=== PATIENT | male | born 1950 ===

== ENCOUNTER 2017-05-22 22:30 | Inpatient (IN) | payer OTHER ==
[2017-05-22 23:07] VITALS: BMI 25.1
[2017-05-22] MEDS ORDERED: Sodium Chloride 0.9% 1,000 ML IV ONE (23:09)
[2017-05-22] MEDS ORDERED: Iohexol 240 (50 ml) PO ONE (23:10)
[2017-05-22] MEDS ORDERED: Sodium Chloride 0.9% 1,000 ML ONE (23:10)
--- NOTE | 2017-05-22 23:22 | C.PDOC ---
History Of Present Illness 66 year old male who presents to the ER with a complaint of severe epigastric pain that began today, associated with nausea and vomiting. Denies diarrhea, dysuria, hematuria, or radiation of pain. Chief Complaint (Nursing): Abdominal Pain History Per: Patient History/Exam Limitations: no limitations Onset/Duration Of Symptoms: Hrs Current Symptoms Are (Timing): Still Present Location Of Pain/Discomfort: Epigastric Quality Of Discomfort: Unable To Describe Associated Symptoms: Nausea, Vomiting. denies: Fever, Chills Exacerbating Factors: None Alleviating Factors: None Recent travel outside of the [place]: No Past Medical History Reviewed: Historical Data, Nursing Documentation, Vital Signs Vital Signs: Last Vital Signs Temp 97.3 F L 05/23/17 02:23 Pulse 55 L 05/23/17 03:45 Resp 16 05/23/17 03:45 BP 122/80 05/23/17 03:45 Pulse Ox 97 05/23/17 04:46 - Medical History PMH: No Chronic Diseases Surgical History: No Surg Hx Family History: States: Unknown Family Hx - Social History Hx Alcohol Use: No Hx Substance Use: No - Immunization History Hx Tetanus Toxoid Vaccination: No Hx Influenza Vaccination: No Hx Pneumococcal Vaccination: No Review Of Systems Constitutional: Negative for: Fever, Chills Cardiovascular: Negative for: Chest Pain Respiratory: Negative for: Shortness of Breath Gastrointestinal: Positive for: Nausea, Vomiting, Abdominal Pain. Negative for : Diarrhea Genitourinary: Negative for: Dysuria, Hematuria Neurological: Negative for: Weakness, Numbness Physical Exam - Physical Exam Appears: Non-toxic, No Acute Distress Skin: Normal Color, Warm, Dry Head: Atraumatic, Normacephalic Oral Mucosa: Moist Chest: Symmetrical, No Tenderness Cardiovascular: Rhythm Regular, No Murmur Respiratory: Normal Breath Sounds, No Rales, No Rhonchi, No Wheezing Gastrointestinal/Abdominal: Soft, Tenderness (Epigastric), No Guarding, No Rebound Neurological/Psych: Oriented x3, Normal Speech, Normal Cognition ED Course And Treatment - Laboratory Results Result Diagrams: 05/22/17 23:36 05/22/17 23:36 O2 Sat by Pulse Oximetry: 97 (Room air) Pulse Ox Interpretation: Normal Progress Note: CT abd/pel, blood work, and urinalysis ordered. Morphine, zofran , and IV fluids administered. On reevaluation, patient's pain has improved, awaiting CT results. On reevaluation, patient continues with persistent RUQ and epigastric pain. Will page Dr. Sullivan for admission. Spoke to Dr. Sullivan who instructed to admit under medicine position description manager and he will see patient as a consult. Disposition Discussed With : Elisabeth Enamorado Doctor Will See Patient In The: Hospital Counseled Patient/Family Regarding: Diagnosis - Disposition Referrals: Vasquez Sullivan MD [Staff Provider] - Disposition: HOSPITALIZED Disposition Time: 04:45 Condition: STABLE Forms: [employer] (German) - Clinical Impression Clinical Impression: Abdominal pain, Gall bladder stones, Cholecystitis - Scribe Statement The provider has reviewed the documentation as recorded by the Scribzaid Oliveros All medical record entries made by the Scribe were at my direction and personally dictated by me. I have reviewed the chart and agree that the record accurately reflects my personal performance of the history, physical exam, medical decision making, and the department course for this patient. I have also personally directed, reviewed, and agree with the discharge instructions and disposition.
[2017-05-22 23:39] LABS: BASO % 0.3 % (0.0-2.0); EOS # 0.1 K/uL (0.0-0.7); EOS % 0.4 % (0.0-4.0); LYMPH # 2.5 K/uL (1.0-4.3); LYMPH % 15.4 % (20.0-40.0); MEAN CELL VOLUME 88.3 fL (80.0-94.0); MEAN CORPUSCULAR HEMOGLOBIN 30.1 pg (27.0-31.0); MEAN CORPUSCULAR HGB CONC 34.1 g/dL (33.0-37.0); MONO # 1.2 K/uL (0.0-0.8); NRBC % 0.1 % (0.0-2.0); RED CELL DISTRIBUTION WIDTH 13.3 % (11.5-14.5); WHITE BLOOD COUNT 16.4 K/uL (4.8-10.8)
[2017-05-22 23:48] LABS: CHLORIDE 105 mmol/L (98-107); POTASSIUM 3.6 mmol/L (3.6-5.2); SODIUM 144 mmol/L (132-148)
[2017-05-22 23:50] LABS: AST/SGOT 47 U/L (17-59); BILIRUBIN,TOTAL 1.6 mg/dL (0.2-1.3); CARBON DIOXIDE 22 mmol/L (22-30); GFR AFRICAN-AMERICAN > 60
[2017-05-22 23:51] LABS: ALB/GLOB RATIO 1.1 (1.0-2.1); ALKALINE PHOSPHATASE 90 U/L (38-126); ALT/SGPT 50 U/L (21-72); BLOOD UREA NITROGEN 21 mg/dL (9-20); CALCIUM 9.4 mg/dl (8.6-10.4); GLUCOSE,RANDOM 147 mg/dL (75-110); TOTAL PROTEIN 7.7 g/dL (6.3-8.3)
[2017-05-22] MEDS ORDERED: Iohexol 240 (50 ml) ONE (23:58)
[2017-05-23] MEDS ORDERED: Iodixanol 320 MG/ML 100 ML BOTTLE IV ONE (00:01)
[2017-05-23 00:02] LABS: RBC URINE 2 /hpf (0-3); URINE BILIRUBIN NEGATIVE (NEGATIVE); URINE BLOOD NEGATIVE (NEGATIVE); URINE COLOR Yellow (YELLOW); URINE GLUCOSE (UA) 1+ mg/dL (Normal); URINE KETONE 2+ mg/dL (NEGATIVE); URINE LEUKOCYTE ESTERASE NEG Leu/uL (Negative); URINE PROTEIN NEGATIVE (NEGATIVE); WBC URINE 1 /hpf (0-5)
[2017-05-23] MEDS ORDERED: Sodium Chloride 0.9% 500 ML IV ONE (00:36)
--- NOTE | 2017-05-23 01:48 | CT ---
EXAM: CT Abdomen and Pelvis With Intravenous Contrast CLINICAL HISTORY: 66 years old, male; Pain; Abdominal pain; Prior surgery; Surgery type: Gastroscopy; Additional info: Upper bd pain TECHNIQUE: Axial computed tomography images of the abdomen and pelvis with intravenous contrast. All CT scans at this facility use one or more dose reduction techniques, viz.: automated exposure control; ma/kV adjustment per patient size (including targeted exams where dose is matched to indication; i.e. head); or iterative reconstruction technique. Coronal and sagittal reformatted images were created and reviewed. CONTRAST: 100 mL of [id number] administered intravenously. COMPARISON: No relevant prior studies available. FINDINGS: Lower thorax: Bilateral hilar and mediastinal calcified lymph nodes, consistent with prior granulomatous disease. ABDOMEN: Liver: Liver is unremarkable. Gallbladder and bile ducts: Cholelithiasis. Stomach is unremarkable. No small bowel obstruction. No ductal dilation. Pancreas: Unremarkable. No mass. No ductal dilation. Spleen: Unremarkable. No splenomegaly. Adrenals: Unremarkable. No mass. Kidneys and ureters: Unremarkable. No solid mass. No hydronephrosis. Stomach and bowel: Mild to moderate amount of residual stool in colon. Appendix: Appendix is unremarkable. PELVIS: Bladder: Unremarkable. No mass. Reproductive: Enlarged prostate gland. ABDOMEN and PELVIS: Intraperitoneal space: Unremarkable. No free air. No significant fluid collection. Bones/joints: No acute fracture. No dislocation. Soft tissues: Unremarkable. Vasculature: Unremarkable. No abdominal aortic aneurysm. Lymph nodes: See above. IMPRESSION: 1. Old granulomatous disease. 2. Cholelithiasis. 3. Remainder of findings as above.
[2017-05-23] MEDS ORDERED: cefTRIAXone IV 1 gm in Dextros 50 ML IVPB ONE ×2 (02:12→02:21)
[2017-05-23] MEDS ORDERED: metroNIDAZOLE IV 500 mg/100 ml 500 MG/100 ML BAG IVPB SCH (02:15)
[2017-05-23] MEDS ORDERED: metroNIDAZOLE IV 500 mg/100 ml 500 MG/100 ML BAG ONE (02:21)
[2017-05-23] MEDS ORDERED: metroNIDAZOLE IV 500 mg/100 ml 500 MG/100 ML BAG IVPB ONE (03:00)
[2017-05-23] MEDS ORDERED: HYDROmorphone 1 mg/ml ISec IVP STA (03:47)
[2017-05-23] MEDS ORDERED: HYDROmorphone 1 mg/ml ISec ONE (03:59)
[2017-05-23] MEDS ORDERED: HYDROmorphone 1 mg/ml ISec IVP PRN (04:45)
[2017-05-23] MEDS: Dextrose 5%/0.45% NS 1,000 ML IV SCH ×2 (05:06→14:16)
[2017-05-23] MEDS: metroNIDAZOLE IV 500 mg/100 ml 500 MG/100 ML BAG IVPB SCH ×3 (05:07→21:51)
[2017-05-23] MEDS: cefTRIAXone IV 1 gm in Dextros 50 ML IVPB SCH (10:44)
--- NOTE | 2017-05-23 10:44 | US ---
HISTORY: upper abd pain COMPARISON: CT of the abdomen and pelvis with contrast performed 05/23/17 TECHNIQUE: Sonographic evaluation of the right upper quadrant of the abdomen. FINDINGS: LIVER: Measures 12.4 cm in length. Echogenic liver may be seen in setting of hepatic parenchymal disease or fatty infiltration. No focal hepatic mass identified. The main portal vein appears patent with normal directional flow. No intrahepatic bile duct dilatation. GALLBLADDER: Non mobile gallstone evident within the gallbladder neck. No evidence of gallbladder wall thickening or pericholecystic edema. Negative sonographic Wood's sign as assessed by the washhouse worker. COMMON BILE DUCT: Measures 4 mm. PANCREAS: Not well-visualized. RIGHT KIDNEY: Measures 9.8 x 4.6 x 4.4 cm. No obstructing calculus or hydronephrosis identified. AORTA: Limited visualization appears grossly unremarkable. IVC: Limited visualization appears grossly unremarkable. OTHER FINDINGS: None . IMPRESSION: Cholelithiasis with non mobile gallstone at the gallbladder neck. Correlate clinically. Hepatic steatosis. Preliminary impression was provided by virtual radiologic.
--- NOTE | 2017-05-23 18:09 | CP.PCM.CON ---
<Timothy Barraza - Last Filed: 05/23/17 18:09> History of Present Illness - History of Present Illness History of Present Illness: Surgery 66 Y M w no sig PMH presents with sudden onset of abd pain/N/V that started yesterday. Pain is located on Epigastric area and RUQ. Pt reports nausea associated with food. Denies F/C/V/D/CP/SOB/hematochezia/hematemesis/hematuria/ dysuria/sick contact. Pt is visiting from [place] and visiting family in the area. This is the first time having these symptoms. US shows stone in the neck of the GB. CBD 4mm.WBC is 16k. T-bili 1.6. Surgery is consulted to evaluate for acute cholecystitis. Review of Systems - Review of Systems Review of Systems: See HPI Past Patient History - Past Medical History & Family History Past Medical History?: Yes - Past Social History Smoking Status: Never Smoked Home Situation {Lives}: With Family - CARDIAC Hx Cardiac Disorders: No - PULMONARY Hx Respiratory Disorders: No - NEUROLOGICAL Hx Neurological Disorder: No - HEENT Hx HEENT Problems: No - RENAL Hx Kidney Stones: Yes - ENDOCRINE/METABOLIC Hx Endocrine Disorders: Yes Hx Hyperthyroidism: Yes - HEMATOLOGICAL/ONCOLOGICAL Hx Blood Disorders: No - INTEGUMENTARY Hx Dermatological Problems: No - MUSCULOSKELETAL/RHEUMATOLOGICAL Hx Falls: No - GASTROINTESTINAL Hx Gastrointestinal Disorders: Yes Other/Comment: Cholelithiasis - GENITOURINARY/GYNECOLOGICAL Hx Genitourinary Disorders: No - PSYCHIATRIC Hx Psychophysiologic Disorder: No Hx Substance Use: No - SURGICAL HISTORY Hx Surgeries: No - ANESTHESIA Hx Anesthesia: Yes Hx Anesthesia Reactions: No Hx Malignant Hyperthermia: No Meds Allergies/Adverse Reactions: Allergies Allergy/AdvReac Type Severity Reaction Status Date / Time No Known Allergies Allergy Verified 05/22/17 23:07 - Medications Medications: Current Medications Acetaminophen (Tylenol 325mg Tab) 975 mg PO Q6 PRN PRN Reason: Fever >100.4 F Hydromorphone HCl (Dilaudid) 1 mg IVP Q4H PRN PRN Reason: pain Last Admin: 05/23/17 10:44 Dose: 1 mg Dextrose/Sodium Chloride (Dextrose 5%/0.45% Ns 1000 Ml) 1,000 mls @ 100 mls/hr IV .Q10H JET Last Admin: 05/23/17 14:16 Dose: Not Given Metronidazole (Flagyl) 500 mg in 100 mls @ 100 mls/hr IVPB Q8 [facility] Last Admin: 05/23/17 14:00 Dose: 100 mls/hr Ceftriaxone Sodium (Rocephin Iv 1 Gm Duplex) 50 mls @ 100 mls/hr IVPB DAILY [facility] Last Admin: 05/23/17 10:44 Dose: 100 mls/hr Ondansetron HCl (Zofran Inj) 4 mg IVP Q4 PRN PRN Reason: Nausea/Vomiting Physical Exam - Constitutional Appears: No Acute Distress - Head Exam Head Exam: ATRAUMATIC, NORMAL INSPECTION, NORMOCEPHALIC - Eye Exam Eye Exam: EOMI, Normal appearance, PERRL Pupil Exam: NORMAL ACCOMODATION, PERRL - ENT Exam ENT Exam: Mucous Membranes Moist, Normal Exam - Neck Exam Neck exam: Positive for: Normal Inspection - Respiratory Exam Respiratory Exam: Clear to Auscultation Bilateral, NORMAL BREATHING PATTERN - Cardiovascular Exam Cardiovascular Exam: REGULAR RHYTHM - GI/Abdominal Exam GI & Abdominal Exam: Normal Bowel Sounds, Soft, Tenderness. absent: Distended, Firm, Guarding, Hernia Additional comments: Epigastric RUQ TTP - Extremities Exam Extremities exam: Positive for: full ROM, normal inspection Results - Vital Signs Recent Vital Signs: Last Vital Signs Temp 97.3 F L 05/23/17 15:20 Pulse 73 05/23/17 15:20 Resp 20 05/23/17 15:20 BP 112/73 05/23/17 15:20 Pulse Ox 99 05/23/17 15:20 - Labs Result Diagrams: 05/22/17 23:36 05/22/17 23:36 Assessment & Plan - Assessment and Plan (Free Text) Assessment: Acute cholecystitis -US gallstones Tbili 1.6 WBC 16k -OR tomorrow 11AM -NPO after midnight -IVF -Pain/nausea control VJ Sullivan <Vasquez Sullivan - Last Filed: 05/23/17 21:05> Meds - Medications Medications: Current Medications Acetaminophen (Tylenol 325mg Tab) 975 mg PO Q6 PRN PRN Reason: Fever >100.4 F Hydromorphone HCl (Dilaudid) 1 mg IVP Q4H PRN PRN Reason: pain Last Admin: 05/23/17 10:44 Dose: 1 mg Dextrose/Sodium Chloride (Dextrose 5%/0.45% Ns 1000 Ml) 1,000 mls @ 100 mls/hr IV .Q10H [facility] Last Admin: 05/23/17 14:16 Dose: Not Given Metronidazole (Flagyl) 500 mg in 100 mls @ 100 mls/hr IVPB Q8 [facility] Last Admin: 05/23/17 14:00 Dose: 100 mls/hr Ceftriaxone Sodium (Rocephin Iv 1 Gm Duplex) 50 mls @ 100 mls/hr IVPB DAILY [facility] Last Admin: 05/23/17 10:44 Dose: 100 mls/hr Ondansetron HCl (Zofran Inj) 4 mg IVP Q4 PRN PRN Reason: Nausea/Vomiting Results - Vital Signs Recent Vital Signs: Last Vital Signs Temp 97.3 F L 05/23/17 15:20 Pulse 73 05/23/17 15:20 Resp 20 05/23/17 15:20 BP 112/73 05/23/17 15:20 Pulse Ox 99 05/23/17 15:20 - Labs Result Diagrams: 05/22/17 23:36 05/22/17 23:36 Attending/Attestation - Attestation I have personally seen and examined this patient.: Yes I have fully participated in the care of the patient.: Yes I have reviewed all pertinent clinical information: Yes Notes (Text): 05/23/17 20:56 Pt was seen and examined at bedside Agree with above note and assessment Pt with Cholelithiasis and Cholecystitis Labs and radiology reviewed. OR for Lap Cholecystectomy Repeat LFTs IV antibiotics Plan d.w pt in detail Risk and benefit explained in detail.
[2017-05-24] MEDS: metroNIDAZOLE IV 500 mg/100 ml 500 MG/100 ML BAG IVPB SCH ×2 (05:11→14:43)
[2017-05-24] MEDS: Dextrose 5%/0.45% NS 1,000 ML IV SCH (05:14)
[2017-05-24 09:38] LABS: ALB/GLOB RATIO 1.1 (1.0-2.1); ALKALINE PHOSPHATASE 65 U/L (38-126); ALT/SGPT 44 U/L (21-72); AST/SGOT 29 U/L (17-59); BILIRUBIN,TOTAL 1.3 mg/dL (0.2-1.3); BLOOD UREA NITROGEN 8 mg/dL (9-20); CALCIUM 8.5 mg/dl (8.6-10.4); CARBON DIOXIDE 26 mmol/L (22-30); CHLORIDE 104 mmol/L (98-107); GFR AFRICAN-AMERICAN > 60; GLUCOSE,RANDOM 79 mg/dL (75-110); SODIUM 138 mmol/L (132-148); TOTAL PROTEIN 6.3 g/dL (6.3-8.3)
[2017-05-24] MEDS ORDERED: Propofol 10 mg/ml Inj (20 ML) ONE (10:44)
[2017-05-24] MEDS ORDERED: Midazolam 2 MG/2 ML VIAL ONE (10:44)
[2017-05-24] MEDS: Bupivacaine-Epi 0.25%-1:200,000 PF Inj ONE ×2 (11:03→11:10)
[2017-05-24] MEDS: Lidocaine 1% Inj (20ml) ONE ×2 (11:03→11:10)
[2017-05-24] MEDS ORDERED: Lactated Ringer's 1,000 ML IV ONE ×3 (11:04→12:41)
[2017-05-24] MEDS: cefTRIAXone IV 1 gm in Dextros 50 ML IVPB SCH (11:20)
--- NOTE | 2017-05-24 13:11 | PCM.SURG1 ---
Surgeon's Initial Post Op Note - Surgeon's Notes Surgeon: Laurie Waredresser: [id number] Type of Anesthesia: General Endo Pre-Operative Diagnosis: Cholelithiasis, Cholecystitis Operative Findings: Cholecystitis Post-Operative Diagnosis: Cholelithiasis, Cholecystitis Operation Performed: Laparoscopic cholecystectomy Specimen/Specimens Removed: Gallbladder Estimated Blood Loss: EBL {In ML}: 20 Blood Products Given: N/A Drains Used: No Drains Post-Op Condition: Good Date of Surgery/Procedure: 05/24/17 Time of Surgery/Procedure: 11:15
[2017-05-24 13:12] VITALS: TEMP 97.5
[2017-05-24] MEDS ORDERED: Lactated Ringer's 1,000 ML IV SCH (13:15)
[2017-05-24] MEDS ORDERED: Oxycodone/Acetaminophen 5/325 mg Tab PO PRN (13:16)
[2017-05-24] MEDS ORDERED: HYDROmorphone 1 mg/ml ISec IVP PRN (13:45)
[2017-05-24 17:03] VITALS: BP 131/77; PULSE 93; RESP 18; O2SAT 96
--- NOTE | 2017-05-24 17:24 | CP.PCM.DIS ---
Provider - Provider Date of Admission: 05/23/17 04:45 Attending physician: Elisabeth Enamorado MD Consults: Dr. Sullivan- surgery Time Spent in preparation of Discharge (in minutes): 20 Diagnosis - Discharge Diagnosis (1) Cholecystitis Status: Resolved (2) Gall bladder stones Status: Resolved (3) Abdominal pain Status: Resolved Hospital Course - Lab Results Lab Results: Most Recent Lab Values WBC 16.4 K/uL (4.8-10.8) H 05/22/17 23:36 RBC 5.43 Mil/uL (4.40-5.90) 05/22/17 23:36 Hgb 16.4 g/dL (12.0-18.0) 05/22/17 23:36 Hct 48.0 % (35.0-51.0) 05/22/17 23:36 MCV 88.3 fL (80.0-94.0) 05/22/17 23:36 MCH 30.1 pg (27.0-31.0) 05/22/17 23:36 MCHC 34.1 g/dL (33.0-37.0) 05/22/17 23:36 RDW 13.3 % (11.5-14.5) 05/22/17 23:36 Plt Count 308 K/uL (130-400) 05/22/17 23:36 MPV 8.0 fL (7.2-11.7) 05/22/17 23:36 Neut % (Auto) 76.9 % (50.0-75.0) H 05/22/17 23:36 Lymph % (Auto) 15.4 % (20.0-40.0) L 05/22/17 23:36 [place] % (Auto) 7.0 % (0.0-10.0) 05/22/17 23:36 Eos % (Auto) 0.4 % (0.0-4.0) 05/22/17 23:36 Baso % (Auto) 0.3 % (0.0-2.0) 05/22/17 23:36 Neut # 12.6 K/uL (1.8-7.0) H 05/22/17 23:36 Lymph # 2.5 K/uL (1.0-4.3) 05/22/17 23:36 [place] # 1.2 K/uL (0.0-0.8) H 05/22/17 23:36 Eos # 0.1 K/uL (0.0-0.7) 05/22/17 23:36 Baso # 0.0 K/uL (0.0-0.2) 05/22/17 23:36 Sodium 138 mmol/L (132-148) 05/24/17 08:56 Potassium 4.0 mmol/L (3.6-5.2) 05/24/17 08:56 Chloride 104 mmol/L (98-107) 05/24/17 08:56 Carbon Dioxide 26 mmol/L (22-30) 05/24/17 08:56 Anion Gap 12 (10-20) 05/24/17 08:56 BUN 8 mg/dL (9-20) L 05/24/17 08:56 Creatinine 0.9 MG/DL (0.8-1.5) 05/24/17 08:56 Est GFR ( Amer) > 60 05/24/17 08:56 Est GFR (Non-Af Amer) > 60 05/24/17 08:56 Random Glucose 79 mg/dL (75-110) 05/24/17 08:56 Calcium 8.5 mg/dl (8.6-10.4) L 05/24/17 08:56 Total Bilirubin 1.3 mg/dL (0.2-1.3) 05/24/17 08:56 AST 29 U/L (17-59) 05/24/17 08:56 ALT 44 U/L (21-72) 05/24/17 08:56 Alkaline Phosphatase 65 U/L (38-126) 05/24/17 08:56 Troponin I < 0.0120 ng/mL (0.00-0.120) 05/23/17 01:21 Total Protein 6.3 g/dL (6.3-8.3) 05/24/17 08:56 Albumin 3.3 g/dL (3.5-5.0) L 05/24/17 08:56 Globulin 3.1 gm/dL (2.2-3.9) 05/24/17 08:56 Albumin/Globulin Ratio 1.1 (1.0-2.1) 05/24/17 08:56 Lipase 140 U/L (23-300) 05/22/17 23:36 Urine Color Yellow (YELLOW) 05/22/17 23:55 Urine Clarity Clear (Clear) 05/22/17 23:55 Urine pH 5.0 (5.0-8.0) 05/22/17 23:55 Ur Specific [place] 1.021 (1.003-1.030) 05/22/17 23:55 Urine Protein Negative mg/dL (NEGATIVE) 05/22/17 23:55 Urine Glucose (UA) 1+ mg/dL (Normal) H 05/22/17 23:55 Urine Ketones 2+ mg/dL (NEGATIVE) H 05/22/17 23:55 Urine Blood Negative (NEGATIVE) 05/22/17 23:55 Urine Nitrate Negative (NEGATIVE) 05/22/17 23:55 Urine Bilirubin Negative (NEGATIVE) 05/22/17 23:55 Urine Urobilinogen 2.0 mg/dL (0.2-1.0) 05/22/17 23:55 Ur Leukocyte Esterase Neg Gold/uL (Negative) 05/22/17 23:55 Urine WBC (Auto) 1 /hpf (0-5) 05/22/17 23:55 Urine RBC (Auto) 2 /hpf (0-3) 05/22/17 23:55 Blood Type A POSITIVE 05/24/17 09:55 Blood Type Confirm A POSITIVE 05/24/17 09:55 Antibody Screen Negative 05/24/17 09:55 - Hospital Course Hospital Course: 66 Y M w no sig PMH presents with sudden onset of abd pain/N/V that started yesterday. Pain is located on Epigastric area and RUQ. Pt reports nausea associated with food. This was the first time having these symptoms. US shows stone in the neck of the GB. Pt had lap mercedes on 05/24/17. Surgery went well and the patient was able to be discharged the same day. Discharge Exam - Head Exam Head Exam: ATRAUMATIC, NORMOCEPHALIC - Eye Exam Eye Exam: EOMI. absent: Scleral icterus - Respiratory Exam Respiratory Exam: NORMAL BREATHING PATTERN. absent: Respiratory Distress - Cardiovascular Exam Cardiovascular Exam: RRR, +S1, +S2 - GI/Abdominal Exam GI & Abdominal Exam: Guarding (mild at incisions), Soft, Tenderness (mild at incision sites). absent: Distended, Firm, Rebound, Rigid - Extremities Exam Extremities exam: normal capillary refill, pedal pulses present - Neurological Exam Neurological exam: Alert, Oriented x3 - Skin Skin Exam: Dry, Warm Discharge Plan - Follow Up Plan Condition: STABLE Disposition: HOME/ ROUTINE Instructions: Cholecystitis (DC), Cholecystitis (GEN), Acute Abdominal Pain (DC ), Acute Abdominal Pain (GEN), Laparoscopic Cholecystectomy (DC) Additional Instructions: No heavy lifting more than 10 pounds for 2 weeks. Follow up on Thursday. Call for fever more than 101 or pain uncontrolled by medications. Regular diet, careful with fatty foods. Ok to shower tomorrow, keep outer dressings dry. Outer dressings can be removed in 2 days, white strips beneath will fall off on their own. No baths, pools, or ocean swimming. Non stressful activity ok. Rx in chart Referrals: Vasquez Sullivan MD [Staff Provider] -
--- NOTE | 2017-05-25 05:54 | OP ---
PROCEDURE DATE: 05/24/2017 PREOPERATIVE DIAGNOSES: Acute cholecystitis and cholelithiasis. POSTOPERATIVE DIAGNOSES: 1. Acute on chronic cholecystitis. 2. Cholelithiasis. 3. Extensive postinfectious adhesion. PROCEDURE: 1. Laparoscopic cholecystectomy. 2. Laparoscopic extensive lysis of adhesions. SURGEON: The procedure was done by , Dr. Sullivan. HVAC DESIGN ENGINEER: Dr. Reza Gomez. TYPE OF ANESTHESIA: General endotracheal tube anesthesia. ESTIMATED BLOOD LOSS: Really it is around 20 mL. DRAIN: None. PATHOLOGY: Gallbladder with gallstones was sent to the pathology. COMPLICATIONS: None. INTRAOPERATIVE FINDINGS: The patient had acute on chronic cholecystitis with extensive postinfectious adhesion of the right upper quadrant and omentum to the liver and colon to the gallbladder and duodenum to the gallbladder. DESCRIPTION OF PROCEDURE: On intraoperative step, this 66-year-old male who was diagnosed with acute cholecystitis and cholelithiasis and the patient was consented for laparoscopic cholecystectomy possible open, brought to the OR, placed supine on the operating room table. After induction of the anesthesia, abdomen was prepped and draped in the usual sterile fashion. Infraumbilical transverse incision was made, after incising skin and subcutaneous tissue, the fascia was incised in the line of incision. Lam port was placed, pneumoperitoneum was created, another 12 mm port was placed in midline below the viscerum and two 5-mm ports were placed in midclavicular and anterior axillary line after the grasper and dissector was introduced and gallbladder appeared to be extensively thick and edematous, there was extensive omentum elevation to the liver as well as to the gallbladder and first extensive lysis of adhesion was done. The gallbladder was resected cranially. More dissection was done to identify the infundibulum and Calot's triangle and now the Calot's triangle dissection was done and the cystic duct and cystic artery was identified and critical view of the safety was identified and the cystic duct and cystic artery was clipped at 3 places and cut in between 2 clips near by gallbladder and gallbladder was dissected free from the gallbladder fossa and there was proper hemostasis in each and every part of the procedure. Gallbladder was taken in endocatch bag, taken out through the umbilical port site and send to the table for the pathology. After suction and irrigation of the gallbladder fossa and perihepatic area and after the proper hemostasis, all the port was taken out under vision, pneumoperitoneum was deflated. The umbilical port site was closed in 2 layers. Fascia with a 0 Vicryl interrupted sutures, skin with a 4-0 Monocryl, and dry sterile dressing was applied. The patient tolerated the procedure well. Count of instrument was correct. There was no apparent complication. Vasquez Sullivan MD
--- NOTE | 2017-05-25 10:09 | HP ---
HISTORY OF PRESENT ILLNESS: A 66-year-old male admitted to the hospital with abdominal pain. The patient found to have , advised admission to hospital. PHYSICAL EXAMINATION: GENERAL: The patient is awake and alert. VITAL SIGNS: Temperature 98 and pulse 90. HEENT: Within normal limits. NECK: Supple. HEART: Regular. ABDOMEN: Soft, mild epigastric tenderness. EXTREMITIES: No edema. The patient and surgical consult. Elisabeth Enamorado MD
--- NOTE | 2017-05-25 23:52 | CARD ---
APPROVED REPORT EKG Measurement Heart [id number] <Conclusion> Sinus bradycardia Otherwise normal ECG
== END 2017-05-24 19:15 | disposition home or self-care (01) | DRG 419 ==
LOC: C.ER 22:30 → C.9E 05-23 04:45 → C.6T 05-23 04:46
PROVIDERS: ADMIT Internal Medicine Pulmonary Disease; ATTEND Internal Medicine Pulmonary Disease
PROC: 0FN44ZZ Release Gallbladder, Percutaneous Endoscopic Approach (ICD-10-PCS; 2017-05-24)
PROC: 0FT44ZZ Resection of Gallbladder, Percutaneous Endoscopic Approach (ICD-10-PCS; principal; 2017-05-24 11:00)
DX: K80.12 Calculus of gallbladder with acute and chronic cholecystitis without obstruction (principal); E05.90 Thyrotoxicosis, unspecified without thyrotoxic crisis or storm; K82.8 Other specified diseases of gallbladder; K66.0 Peritoneal adhesions (postprocedural) (postinfection); Z87.442 Personal history of urinary calculi